=== PATIENT | female | born 1980 | race African-American/Black ===

== ENCOUNTER 2016-06-12 13:02 | Emergency (ER) | payer OTHER ==
[2016-06-12 13:11] VITALS: BP 114/71; PULSE 81; TEMP 98.4; BMI 20.5
[2016-06-12] MEDS ORDERED: ACETAMINOPHEN 325 MG TABLET (FP) ONE (13:31)
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
[2016-06-12] MEDS ORDERED: ACETAMINOPHEN 325 MG TABLET (FP) PO ONE (13:46)
== END 2016-06-12 15:30 | disposition home or self-care (01) ==
LOC: FER 13:02
DX: S13.4XXA Sprain of ligaments of cervical spine, initial encounter (principal); V43.52XA Car driver injured in collision with other type car in traffic accident, initial encounter; Y93.89 Activity, other specified; Y92.410 Unspecified street and highway as the place of occurrence of the external cause; M62.838 Other muscle spasm
CPT/HCPCS: 72050-TC; 84703; 99283-25